=== PATIENT | female | born 1935 | race Caucasian/White ===

== ENCOUNTER → 2016-04-28 | Outpatient (CLI) | payer MEDICARE, BC ==
[~2016-04-28] MED LIST: BENADRYL25 M2 PO; CEPHALEXIN500 M1 PO; COSAMIN ASU 2001 CAP PO; DITROPAN 5MG TAB5 MG PO; EFFEXOR XR75 MG/CAP PO; HYZAAR 12.5 MG-1 TAB PO; LEVOBUNOLOL OU; MELATONIN5 M1 SL; MUCINEX1200 MG PO; MULTIVITAMIN FO1 CAP PO; NEILMED SINUS R1 PKT NS; NORCO 325 MG-51 TAB PO; REFRESH PM1 OI1 OP; TENORMIN 5050 MG/TAB PO; TYLENOL 325MG325 MG PO; ZANTAC 150MG T150 MG PO; [UNRECOGNIZED DRUG - OTHER] PO
== END ==
LOC: MC.RAD 09:25
DX: Z12.31 Encounter for screening mammogram for malignant neoplasm of breast (principal)

== ENCOUNTER → 2016-08-03 | Outpatient (CLI) | payer MEDICARE, BC | LOC: COL.RAD 13:44 | DX: M16.11 Unilateral primary osteoarthritis, right hip (principal) | CPT/HCPCS: J3301; Q9967 ==

== ENCOUNTER → 2016-09-14 | Outpatient (CLI) | payer MEDICARE, BC | LOC: COL.RAD 09:20 | DX: M16.11 Unilateral primary osteoarthritis, right hip (principal) | CPT/HCPCS: J3301; Q9967 ==

== ENCOUNTER → 2016-11-09 | Outpatient (CLI) | payer MEDICARE, BC ==
[2016-11-09 12:08] LABS: HIV 1/2 Antibodies Non-Reactive; HIV-1p24 Antigen Non-Reactive
== END ==
LOC: COL.LAB 10:29
PROVIDERS: Orthopaedic Surgery
DX: Z01.812 Encounter for preprocedural laboratory examination (principal); M16.11 Unilateral primary osteoarthritis, right hip

== ENCOUNTER → 2017-05-09 | Outpatient (CLI) | payer MEDICARE, BC | LOC: MC.RAD 14:00 | DX: Z12.31 Encounter for screening mammogram for malignant neoplasm of breast (principal); N64.89 Other specified disorders of breast ==

== ENCOUNTER → 2017-05-17 | Outpatient (CLI) | payer MEDICARE, BC | LOC: MC.RAD 10:50 | DX: Z12.31 Encounter for screening mammogram for malignant neoplasm of breast (principal) ==

== ENCOUNTER → 2018-05-22 | Outpatient (CLI) | payer MEDICARE, BC | LOC: MC.RAD 11:13 | DX: Z12.31 Encounter for screening mammogram for malignant neoplasm of breast (principal) ==

== ENCOUNTER → 2019-11-19 | Outpatient (CLI) | payer MEDICARE, BC | LOC: MC.RAD 10:40 | DX: Z12.31 Encounter for screening mammogram for malignant neoplasm of breast (principal) ==

== ENCOUNTER → 2019-12-24 | Outpatient (CLI) | payer MEDICARE, BC | LOC: COL.RAD 15:30 | DX: K80.20 Calculus of gallbladder without cholecystitis without obstruction (principal); K44.9 Diaphragmatic hernia without obstruction or gangrene ==

== ENCOUNTER 2020-01-08 06:49 | Day surgery (SDC) | payer MEDICARE, BC ==
[2020-01-08] VITALS (12 sets, daily range): BP systolic 88–129; BP diastolic 45–79; PULSE 64–96; TEMP 97.6–98.9
[~2020-01-08] VITALS: Ht 162.6 cm; Wt 57.3 kg
[2020-01-08 07:29] LABS: BASO # 0.1 (0.0-0.2); BASO % 1.2 % (0.0-2.0); EOS # 0.4 (0.0-0.7); EOS % 6.4 % (0-4.0); GRAN # 4.4 (1.4-6.5); GRAN % 65.3 % (42.2-75.2); HEMATOCRIT 37.5 % (37.0-47.0); LYMPH # 1.1 (1.2-3.4); LYMPH % 15.9 % (20.0-51.0); MEAN CELL VOLUME 87 fl (80.0-100.0); MEAN CORPUSCULAR HEMOGLOBIN 28 pg (27.0-31.0); MEAN CORPUSCULAR HGB CONC 32 g/dl (33.0-37.0); MEAN PLATELET VOLUME 8.9 fl (7.4-10.4); MONO # 0.7 (0.1-0.6); MONO % 10.8 % (1.7-9.3); PLATELET COUNT 325 K/mm3 (130-400); RED BLOOD COUNT 4.32 M/mm3 (4.10-5.30); REDCELL DISTRIBUTION WIDTH-CV 14.7 % (11.5-14.5)
[2020-01-08 07:37] LABS: CALCIUM 9.6 mg/dL (8.4-10.2); CREATININE, serum 0.68 (0.52-1.25); POTASSIUM 4.1 mmol/L (3.4-5.0)
[2020-01-08] MEDS ORDERED: OCUVITE1 TA1 PO (07:55)
[2020-01-08] MEDS ORDERED: MYRBETR50MG PO (07:57)
[2020-01-08] MEDS ORDERED: MINOCYCLIN100 MG/CAP PO (07:57)
[2020-01-08] MEDS ORDERED: ASPIRIN 81M81 MG/TA2 PO (07:58)
[2020-01-08] MEDS ORDERED: TYLENOL 325MG325 MG PO (07:59)
[2020-01-08] MEDS ORDERED: PEPCID 20MG TAB20 MG PO (08:00)
[2020-01-08] MEDS ORDERED: [UNRECOGNIZED DRUG - SUPPLY] TOP (08:03)
[2020-01-08] MEDS ORDERED: EYE DROP TEARS15 ML OP (08:08)
--- NOTE | 2020-01-08 10:04 | NUR ---
Initial visit; Patient and her daughter thanked Conche Operator for offering encouragement and prayer for Tanvi prior to her surgical procedure.
[2020-01-08] MEDS ORDERED: MOTRIN 600600 MG/TAB PO (12:00)
[2020-01-08] MEDS ORDERED: NORCO 325 MG-51 TAB PO (12:00)
--- NOTE | 2020-01-08 13:00 | NUR ---
Patient is back from surgery. She is drowsy but oriented. She is very hard of hearing. Denies nausea and pain. Incisions to abdomen are well approximated. Oriented patient to room. Her daughter is at bedside. Patients oxygen levels are dropping when she falls asleep. Placed her to 2 liters of oxygen via NC. No other changes at this time. Call light within reach.
--- NOTE | 2020-01-08 18:00 | NUR ---
Patient has been doing well. Denies pain and nausea. She is tolerating food without issues. She has been up to the bathroom once to void. She is doing her incentive spirometer without issues. No other changes at this time. Call light within reach. Her daughter left for the night.
--- NOTE | 2020-01-08 19:01 | NUR ---
Received report from TIFFANY Dent. Pt is lying in bed and has her call light within reach and her bed is in lowest position.
--- NOTE | 2020-01-09 | NUR ---
Pt is currently sleeping in bed. Pt has her call light within reach. Pt did complain of pain in her knee and at that time pt was given pain medication.
[2020-01-09 04:00] VITALS: BP 89/43; PULSE 73; TEMP 98.4
--- NOTE | 2020-01-09 05:55 | NUR ---
Pt is currently resting in bed. Pt has ambulated to the restroom a couple times during the night. Pt has her call light within reach and her bed is in lowest position.
[2020-01-09 07:00] VITALS: BP 101/52; PULSE 72; TEMP 98
--- NOTE | 2020-01-09 07:00 | NUR ---
Shift assessment complete. A&O x4, denies pain and nausea at this time.Reviewed instructions for IS use. INT site:no reddness or swelling. Abd lap inc sites x3: GIANNA, CDI. SCD's bilaterally. Pt encouraged to ambulate. Tolerating low fat diet well. Currently visiting w/ her daughter in anticipation of discharge after Dr. Turpin's rounds.
--- NOTE | 2020-01-09 09:00 | NUR ---
Patient alert and oriented, answers questions appropriately. See assessment. Abdomen soft, non tender, non distended. Bowel sounds active x4 quads. +Flatus. Lap sites to abdomen with edges well approximated, no redness or drainage noted. Post op exercises reviewed with patient. No c/o at this time.
[2020-01-09 10:25] VITALS: BP 116/57; PULSE 68; TEMP 98.2
--- NOTE | 2020-01-09 11:14 | NUR ---
First visit from the spring maker. No needs right now.
--- NOTE | 2020-01-09 11:37 | NUR ---
Topology Professor met with patient to discuss discharge planning. Patient's daughter, Elizabeth (ph#[phone]) is at bedside and states she is patient's DPOA-HC. Patient lives alone on a farm in [place] but reports her son, Randy and her grandson are out on the farm all day with her. Patient states her son stays with her until 10:00pm and then makes sure she is in bed for the evening. Patient states she is alone overnight but is able to get to the bathroom using a wheelchair. Patient normally ambulates with a front wheeled walker, however she states it is quicker for her to use the wheelchair if she needs to go to the bathroom at night. Patient was observed ambulating the halls with her front wheeled walker. Patient does not use any DME and states she is independent with ADLS at home. Patient plans to return home at discharge with Elizabeth providing transportation. Patient is hoping to get home today. No additional needs at this time.
--- NOTE | 2020-01-09 11:42 | NUR ---
Dr Turpin here to see patient.
--- NOTE | 2020-01-09 12:45 | NUR ---
Discharge instructions reviewed with patient and daughter, verbalized understanding. Discharged via wheelchair to auto/home with family at 1245.
== END 2020-01-09 12:45 | disposition home or self-care (01) ==
LOC: SDCO 06:49 → SURG 12:13 → SDCO 01-09 12:45
PROVIDERS: Surgery
DX: K80.10 Calculus of gallbladder with chronic cholecystitis without obstruction (principal); I10 Essential (primary) hypertension; G47.00 Insomnia, unspecified; G62.9 Polyneuropathy, unspecified; K21.9 Gastro-esophageal reflux disease without esophagitis; M19.90 Unspecified osteoarthritis, unspecified site; F32.9 Major depressive disorder, single episode, unspecified; G89.29 Other chronic pain; Z79.82 Long term (current) use of aspirin; Z79.899 Other long term (current) drug therapy; Z86.718 Personal history of other venous thrombosis and embolism; Z94.7 Corneal transplant status; Z96.641 Presence of right artificial hip joint; Z88.0 Allergy status to penicillin; Z88.2 Allergy status to sulfonamides; Z87.11 Personal history of peptic ulcer disease
CPT/HCPCS: OP; A9284; J0690; J1100; J1885; J2370; J2405; J2704; J3010; J7120; Q9967

== ENCOUNTER 2020-03-20 11:33 | Outpatient (CLI) | payer MEDICARE, BC ==
[~2020-03-20] VITALS: Ht 162.6 cm; Wt 56.8 kg
[2020-03-20] VITALS (8 sets, daily range): BP systolic 127–151; BP diastolic 69–80; PULSE 61–71; TEMP 98.2
[~2020-03-20 11:33] MED LIST changes: +ASPIRIN 81M81 MG/TA2 PO; +EYE DROP TEARS15 ML OP; +MINOCYCLIN100 MG/CAP PO; +MOTRIN 600600 MG/TAB PO; +MYRBETR50MG PO; +OCUVITE1 TA1 PO; +PEPCID 20MG TAB20 MG PO; +[UNRECOGNIZED DRUG - SUPPLY] TOP
== END 2020-03-20 14:15 | disposition home or self-care (01) ==
LOC: EUO 11:33
DX: U07.1 COVID-19 (principal)
CPT/HCPCS: J7050

== ENCOUNTER 2020-04-11 16:27 | Observation (INO) | payer MEDICARE, BC ==
[~2020-04-11] VITALS: Ht 162.6 cm; Wt 57.4 kg
[2020-04-11 17:05] LABS: BASO # 0.1 (0.0-0.2); BASO % 0.7 % (0.0-2.0); EOS # 0.7 (0.0-0.7); EOS % 7.2 % (0-4.0); GRAN # 6.6 (1.4-6.5); GRAN % 67.2 % (42.2-75.2); LYMPH # 1.4 (1.2-3.4); MEAN CELL VOLUME 87 fl (80.0-100.0); MEAN CORPUSCULAR HGB CONC 32 g/dl (33.0-37.0); MEAN PLATELET VOLUME 8.9 fl (7.4-10.4); MONO % 10.3 % (1.7-9.3); PLATELET COUNT 410 K/mm3 (130-400); RED BLOOD COUNT 2.93 M/mm3 (4.10-5.30); REDCELL DISTRIBUTION WIDTH-CV 14.3 % (11.5-14.5)
[2020-04-11 17:07] LABS: HEMATOCRIT 25.4 % (37.0-47.0); HEMOGLOBIN 8.1 g/dl (12.5-16.0); MEAN CORPUSCULAR HEMOGLOBIN 28 pg (27.0-31.0)
[2020-04-11 17:12] LABS: ALANINE AMINOTRANSFERASE 18 U/L (4-34); ALBUMIN 3.4 gm/dL (3.5-5.0); ALKALINE PHOSPHATASE 106 U/L (50-136); ANION GAP 7 mmol/L (7-16); AST,SGOT 30 U/L (15-37); BILIRUBIN,TOTAL 0.3 mg/dL (0.0-1.0); BLOOD UREA NITROGEN 26 mg/dL (7-17); CALCIUM 9.2 mg/dL (8.4-10.2); CARBON DIOXIDE 30 mmol/L (22-30); CHLORIDE 95 mmol/L (98-107); CREATININE, serum 0.65 (0.52-1.25); GLUCOSE 103 mg/dL (74-106); POTASSIUM 4.1 mmol/L (3.4-5.0); SODIUM 132 mmol/L (137-145); TOTAL PROTEIN 6.5 gm/dL (6.4-8.2)
[2020-04-11 17:20] LABS: COLLECTION METHOD CLEAN CATCH
[2020-04-11 17:24] LABS: TROPONIN-I < 0.012 ng/mL (0.000-0.035)
[2020-04-11 17:28] LABS: AMORPHOUS CRYSTAL Present /uL; MUCOUS Present /lpf; PH 6 (5-8); SQUAMOUS EPITHELIAL 0-2 /hpf; URINE APPEARANCE Hazy; URINE BACTERIA Rare /hpf; URINE BILIRUBIN Negative (NEGATIVE); URINE BLOOD Negative (NEGATIVE); URINE COLOR Yellow; URINE GLUCOSE Negative (NEGATIVE); URINE KETONE Negative (NEGATIVE); URINE LEUKOCYTE ESTERASE Trace (NEGATIVE); URINE NITRATE Negative (NEGATIVE); URINE PROTEIN(semi-quant) Negative (NEGATIVE); URINE UROBILINOGEN Negative (NEGATIVE)
[2020-04-11 20:57] VITALS: BP 139/70; PULSE 82; TEMP 99
[2020-04-11 21:30] VITALS: BP 132/66; PULSE 80; TEMP 98.5
--- NOTE | 2020-04-11 21:31 | NUR ---
Transfusion started at this time.
--- NOTE | 2020-04-11 21:39 | NUR ---
Patient arrived to medical floor at 2044. Assessment complete. Lungs clear. Heart sounds normal. Bowels active x4. Pulses present throughout. No edema noted. INT right wrist flushed without complications. Denies pain. Weak gait. Traci GOODSON in room to see patient. Patient alert and orientated. Orientated to medical floor and given call light. Bed alarm in place. Denies other needs. Remaining at bedside per tranfusion protocol.
[2020-04-11 21:45] VITALS: BP 142/74; PULSE 78; TEMP 98.4
[2020-04-11 22:18] VITALS: BP 140/76; PULSE 79; TEMP 98.7
[2020-04-11 23:15] VITALS: BP 150/79; PULSE 78; TEMP 98.3
[2020-04-12] VITALS (10 sets, daily range): BP systolic 111–137; BP diastolic 63–92; PULSE 74–91; TEMP 98–98.8
--- NOTE | 2020-04-12 00:28 | NUR ---
Transfusion complete. up to restroom and returned to bed. Denies needs. Call light in reach.
[2020-04-12 03:19] LABS: HEMATOCRIT 26.8 % (37.0-47.0); HEMOGLOBIN 8.6 g/dl (12.5-16.0)
--- NOTE | 2020-04-12 06:40 | NUR ---
Patient had uneventful night. Resting in bed this AM. Call light in reach.
--- NOTE | 2020-04-12 07:11 | NUR ---
Report given to TIFFANY Soto
[2020-04-12 08:34] LABS: BASO # 0.1 (0.0-0.2); BASO % 0.8 % (0.0-2.0); EOS # 0.6 (0.0-0.7); EOS % 8.3 % (0-4.0); GRAN # 4.8 (1.4-6.5); GRAN % 66.2 % (42.2-75.2); LYMPH # 0.9 (1.2-3.4); LYMPH % 12.5 % (20.0-51.0); MEAN CELL VOLUME 87 fl (80.0-100.0); MEAN CORPUSCULAR HGB CONC 32 g/dl (33.0-37.0); MEAN PLATELET VOLUME 8.8 fl (7.4-10.4); MONO # 0.8 (0.1-0.6); MONO % 11.5 % (1.7-9.3); PLATELET COUNT 314 K/mm3 (130-400); RED BLOOD COUNT 3.22 M/mm3 (4.10-5.30); REDCELL DISTRIBUTION WIDTH-CV 14.3 % (11.5-14.5)
[2020-04-12 08:35] LABS: HEMATOCRIT 28.1 % (37.0-47.0); HEMOGLOBIN 8.9 g/dl (12.5-16.0); MEAN CORPUSCULAR HEMOGLOBIN 28 pg (27.0-31.0)
[2020-04-12 08:48] LABS: ALBUMIN 2.8 gm/dL (3.5-5.0); BILIRUBIN,TOTAL 0.5 mg/dL (0.0-1.0); CALCIUM 8.2 mg/dL (8.4-10.2); CREATININE, serum 0.48 (0.52-1.25); POTASSIUM 3.9 mmol/L (3.4-5.0); TOTAL PROTEIN 5.6 gm/dL (6.4-8.2)
[2020-04-12 10:29] LABS: IRON,SERUM 17 ug/dL (35-150)
[2020-04-12 10:38] LABS: TOTAL IRON BINDING CAPACITY 300 ug/dL (265-497)
--- NOTE | 2020-04-12 11:40 | NUR ---
Pt down for EGD at this time. Assessment completed prior, pt A&O, on room air. Pt denies any pain, dizziness, N/V/D, chest pain, numbness or tingling. Pt has INT RWR, flushes well. UL LS cta, LLL crackles, HRRR, BS active, no edema noted, pulses strong bilaterally. No further needs at this time.
--- NOTE | 2020-04-12 12:30 | NUR ---
Pt back from EGD, no issues noted, post op VS monitoring in progress. Pt requesting water and food. Lunch ordered and delivered, water provided. Medications administered per may. All questions answered.
--- NOTE | 2020-04-12 13:26 | NUR ---
Plans to return home with DTR as care Support Ayana Casandra. SW met with patient and dtr in room. Patient reports that she is okay with talking in front of DTR. Patient reports that she resides in [place] and has a son and dtr involved with her care. Patient reports DPOA is her Son Rashad . Patient reports that she has PCP Dr. Papa Dove and uses [facility] for medications. 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 Patient reports that she does not need any HHS or Skilled services and will think about it for later. Patient indicated that she will be okay when returning home. Will continue to follow care.
[2020-04-12 17:58] LABS: HEMATOCRIT 29.6 % (37.0-47.0); HEMOGLOBIN 9.3 g/dl (12.5-16.0)
--- NOTE | 2020-04-12 18:19 | NUR ---
Pt doing well post EGD, has received lunch and dinner. Pt showered. No further concerns noted.
--- NOTE | 2020-04-12 19:11 | NUR ---
Reports left knee pain. Would like cream for knee. Spoke with Traci GOODSON. Will add orders.
--- NOTE | 2020-04-12 21:25 | NUR ---
Up to bedside commode. Assessment complete. Lungs clear. Heart sounds normal. Bowels active x4. Pulses present throughout. No edema noted. INT right wrist without complications. Reports pain in knees. Capsaicin cream applied at this time. Denies other needs. Call light in reach.
--- NOTE | 2020-04-13 00:07 | NUR ---
Up to restroom and returned to bed. Denies needs. Call light in reach.
--- NOTE | 2020-04-13 01:38 | NUR ---
Up to restroom and returned to bed. Denies needs. Call light in reach.
[2020-04-13 03:21] VITALS: BP 125/37; PULSE 79; TEMP 98.2
--- NOTE | 2020-04-13 04:19 | NUR ---
Resting in bed. Denies needs. Call light in reach.
[2020-04-13 06:08] LABS: BASO # 0.1 (0.0-0.2); BASO % 0.9 % (0.0-2.0); EOS # 0.9 (0.0-0.7); EOS % 12.2 % (0-4.0); GRAN # 4.2 (1.4-6.5); GRAN % 56.7 % (42.2-75.2); HEMATOCRIT 29.6 % (37.0-47.0); HEMOGLOBIN 9.4 g/dl (12.5-16.0); LYMPH # 1.3 (1.2-3.4); MEAN CELL VOLUME 86 fl (80.0-100.0); MEAN CORPUSCULAR HEMOGLOBIN 27 pg (27.0-31.0); MEAN CORPUSCULAR HGB CONC 32 g/dl (33.0-37.0); MEAN PLATELET VOLUME 8.8 fl (7.4-10.4); MONO # 0.9 (0.1-0.6); MONO % 12.4 % (1.7-9.3); PLATELET COUNT 370 K/mm3 (130-400); RED BLOOD COUNT 3.46 M/mm3 (4.10-5.30); REDCELL DISTRIBUTION WIDTH-CV 14.2 % (11.5-14.5)
[2020-04-13 06:18] LABS: CALCIUM 8.6 mg/dL (8.4-10.2); CREATININE, serum 0.62 (0.52-1.25); POTASSIUM 3.9 mmol/L (3.4-5.0)
--- NOTE | 2020-04-13 07:14 | NUR ---
Report given to TIFFANY Soto
[2020-04-13 08:46] VITALS: BP 108/80; PULSE 83; TEMP 97.5
[2020-04-13] MEDS ORDERED: PROTONIX 40MG T40 MG PO (09:25)
[2020-04-13] MEDS ORDERED: FERRO-TIME325 MG PO (09:28)
--- NOTE | 2020-04-13 09:30 | NUR ---
Pt assessment completed and charted, medications administered per may. Pt A&O, 1 assist to bedside commode. Pt INT IV flushes w/o issue. Pt on room air, breathing is even and unlabored, LS cta. HRRR. Pt denies dizziness, N/V/D, chest pain, abdominal pain. Hgb remains stable. Pt has soft BPs this morning, asymptomatic. No issues noted, no concerns expressed.
[2020-04-13 09:34] VITALS: BP 115/72
--- NOTE | 2020-04-13 11:40 | NUR ---
Patient will discharge home today 04/13 with family assist per PT evaluations. There are no further needs at this time.
[2020-04-13 12:09] VITALS: BP 96/60; PULSE 82; TEMP 97.5
--- NOTE | 2020-04-13 13:59 | NUR ---
Pt discharge instructions discussed and reviewed w/ pt and daughter who verbalized understanding, all questions answered. INT IV dc'd w/ cath tip intact and no issues. Pt assisted to bedside commode prior to departure. Pt assisted in getting ready and escorted out via WC with this nurse. No further needs expressed.
== END 2020-04-13 14:06 | disposition home or self-care (01) ==
LOC: COL.ER 16:27 → MEDICAL 18:19
PROVIDERS: Internal Medicine Gastroenterology; Nurse Practitioner Primary Care; Student in an Organized Health Care Education/Training Program; ADMIT Student in an Organized Health Care Education/Training Program
DX: K25.7 Chronic gastric ulcer without hemorrhage or perforation (principal); K21.9 Gastro-esophageal reflux disease without esophagitis; D50.0 Iron deficiency anemia secondary to blood loss (chronic); K44.9 Diaphragmatic hernia without obstruction or gangrene; E87.1 Hypo-osmolality and hyponatremia; I10 Essential (primary) hypertension; M19.90 Unspecified osteoarthritis, unspecified site; G89.29 Other chronic pain; G62.9 Polyneuropathy, unspecified; R32 Unspecified urinary incontinence; F32.9 Major depressive disorder, single episode, unspecified; Z86.16 Personal history of COVID-19; Z86.718 Personal history of other venous thrombosis and embolism; Z96.641 Presence of right artificial hip joint; Z79.899 Other long term (current) drug therapy; Z79.82 Long term (current) use of aspirin; Z88.2 Allergy status to sulfonamides; Z88.1 Allergy status to other antibiotic agents; Z88.0 Allergy status to penicillin
CPT/HCPCS: 99223-AI; 99233-AI; 99239; C9113; G0378; J2704; J7120; P9016

== ENCOUNTER → 2020-11-27 | Outpatient (CLI) | payer MEDICARE, BC ==
[~2020-11-27] MED LIST changes: +FERRO-TIME325 MG PO; +PROTONIX 40MG T40 MG PO
== END ==
LOC: MC.RAD 10:43
DX: Z12.31 Encounter for screening mammogram for malignant neoplasm of breast (principal)

== ENCOUNTER 2021-07-20 12:10 | Inpatient (IN) | payer MEDICARE, BC ==
[~2021-07-20] VITALS: Ht 162.6 cm; Wt 67.8 kg
[2021-07-20 12:53] LABS: BASO # 0.1 K/mm3 (0.0-0.2); BASO % 0.8 % (0.0-2.0); EOS # 0.4 K/mm3 (0.0-0.7); EOS % 5.5 % (0.0-4.0); GRAN # 4.3 K/mm3 (1.4-6.5); GRAN % 66.3 % (42.2-75.2); LYMPH # 1.1 K/mm3 (1.2-3.4); LYMPH % 16.4 % (20.0-51.0); MEAN CELL VOLUME 86 fl (80.0-100.0); MEAN CORPUSCULAR HGB CONC 30 g/dl (33.0-37.0); MEAN PLATELET VOLUME 9.6 fl (7.4-10.4); MONO # 0.7 K/mm3 (0.1-0.6); MONO % 10.7 % (1.7-9.3); PLATELET COUNT 207 K/mm3 (130-400); RED BLOOD COUNT 3.19 M/mm3 (4.10-5.30); REDCELL DISTRIBUTION WIDTH-CV 13.1 % (11.5-14.5)
[2021-07-20 12:55] LABS: HEMATOCRIT 27.3 % (37.0-47.0); HEMOGLOBIN 8.3 g/dl (12.5-16.0); MEAN CORPUSCULAR HEMOGLOBIN 26 pg (27-31)
[2021-07-20 13:17] LABS: ALANINE AMINOTRANSFERASE 11 U/L (0-55); ALBUMIN 3.5 gm/dL (3.4-4.8); ALKALINE PHOSPHATASE 58 U/L (40-150); ANION GAP 11 mmol/L (7-16); AST,SGOT 21 U/L (5-34); BILIRUBIN,TOTAL 0.3 mg/dL (0.2-1.2); BLOOD UREA NITROGEN 16 mg/dL (10-20); CALCIUM 8.8 mg/dL (8.4-10.2); CARBON DIOXIDE 25 mmol/L (23-31); CHLORIDE 103 mmol/L (98-107); CREATININE, serum 0.69 mg/dL (0.57-1.11); GLUCOSE 112 mg/dL (70-99); LIPASE 87 U/L (8-78); POTASSIUM 4.1 mmol/L (3.5-4.5); SODIUM 139 mmol/L (136-145); TOTAL PROTEIN 6.4 gm/dL (6.2-8.1)
[2021-07-20 13:25] LABS: TROPONIN-I < 0.010 ng/mL (0.00-0.033)
[2021-07-20 15:41] VITALS: BP 126/73; PULSE 62; TEMP 97.8
[2021-07-20] MEDS ORDERED: MINOCIN 50M50 MG/CAP PO (15:43)
[2021-07-20] MEDS ORDERED: ONE-A-DAY WOMEN1 TAB PO (15:46)
[2021-07-20] MEDS ORDERED: VITAMIN D31000 I1 PO (15:47)
[2021-07-20] MEDS ORDERED: MIRTAZAPINE7.5 MG PO (15:48)
[2021-07-20] MEDS ORDERED: MURO-128 5% OP3.5 GM OP ×2 (15:49→17:26)
[2021-07-20] MEDS ORDERED: CEFTRIAXONE IJ (15:50)
[2021-07-20] MEDS ORDERED: [UNRECOGNIZED DRUG - OTHER] IJ (15:50)
[2021-07-20] MEDS ORDERED: ZOFRAN 4MG T4 MG/TAB PO (15:50)
--- NOTE | 2021-07-20 15:52 | NUR ---
PT ADMITTED TO UNIT. ADMISSION INTAKE AND ASSESSMENT COMPLETED. MED REC UPDATED. PT ORIENTED TO ROOM, DAUGHTER AT BEDSIDE. PT DENIES ANY PAIN OR NEEDS AT THIS TIME. WILL CONTINUE TO MONITOR.
[2021-07-20] MEDS ORDERED: REFRESH 1 ML1 ML OP (17:25)
[2021-07-20 19:54] VITALS: BP 125/63; PULSE 69; TEMP 98.2
[2021-07-20 21:32] LABS: HEMOGLOBIN 7.6 g/dl (12.5-16.0)
[2021-07-20 22:41] LABS: INR 1.1 (0.8-3.0); PROTHROMBIN TIME 12.5 SECONDS (9.7-12.8)
[2021-07-21] VITALS (16 sets, daily range): BP systolic 97–142; BP diastolic 54–86; PULSE 66–86; TEMP 98–98.5
--- NOTE | 2021-07-21 06:18 | NUR ---
ASSESSMENT COMPLETE FOR THIS SHIFT. PT RESTING IN BED WITH HER FAMILY BY HER SIDE. PT DENIED PAIN, PALPITATIONS, SOB, N,V,D OR DIZZINESS. PT GIVEN FULL DOSE OF REMERON (15mg VS ORDERED DOSE OF 3.75mg). HOSPITALIST NOTIFIED. ERS REPORT DONE. NO NOTED HARM TO PT. PT JUST FELT SHE WAS ABLE TO GET A FEW HOURS OF SLEEP ("IT WORKED." PT STATED). WILL CONTINUE TO MONITOR. PT EXPRESSED NO OTHER NEEDS AT THIS TIME. CALL LIGHT WITHIN REACH.
[2021-07-21 06:25] LABS: BASO % 0.8 % (0.0-2.0); EOS # 0.4 K/mm3 (0.0-0.7); EOS % 7.4 % (0.0-4.0); GRAN # 2.9 K/mm3 (1.4-6.5); LYMPH % 20.2 % (20.0-51.0); MEAN CELL VOLUME 89 fl (80.0-100.0); MEAN CORPUSCULAR HGB CONC 30 g/dl (33.0-37.0); MEAN PLATELET VOLUME 9.6 fl (7.4-10.4); MONO # 0.7 K/mm3 (0.1-0.6); MONO % 13.2 % (1.7-9.3); PLATELET COUNT 178 K/mm3 (130-400); RED BLOOD COUNT 2.79 M/mm3 (4.10-5.30); REDCELL DISTRIBUTION WIDTH-CV 12.9 % (11.5-14.5)
[2021-07-21 06:34] LABS: HEMATOCRIT 24.7 % (37.0-47.0); HEMOGLOBIN 7.4 g/dl (12.5-16.0); MEAN CORPUSCULAR HEMOGLOBIN 27 pg (27-31)
[2021-07-21 06:47] LABS: CALCIUM 8.4 mg/dL (8.4-10.2); CREATININE, serum 0.64 mg/dL (0.57-1.11); MAGNESIUM 1.8 mg/dL (1.6-2.6); PHOSPHOROUS 3.3 mg/dL (2.3-4.7); POTASSIUM 3.8 mmol/L (3.5-4.5)
--- NOTE | 2021-07-21 07:00 | NUR ---
PT OFF UNIT FOR PROCEDURE THIS AM
--- NOTE | 2021-07-21 08:52 | NUR ---
PT RESTING IN BED. MORNING MEDICATIONS GIVEN. SHIFT ASSESSMENT COMPLETED. PT DENIES ANY PAIN. SLIGHTLY DROWSY FOLLOWING PROCEDURE, VSS. WILL CONTINUE TO MONITOR.
--- NOTE | 2021-07-21 13:06 | NUR ---
Cheryl: Nondenominational Situation: Road Monkey stopped by room on rounds Background: PT was on the phone Assessment: Daughter explained PT was nervous about procedure. Road [facility]key offered our services Recommendation: Road [facility] will follow up as needed
--- NOTE | 2021-07-21 15:07 | NUR ---
SW met with the patient and her daughter, Jihan (ph#[phone]), to discuss discharge plan. The patient lives alone on a farm outside [place]. She states that her son and grandson farm out there and are in and out of here house all day and check-in on her. She reports independence with ADLs and has a walker. The patient's PCP is Dr. Terell Dove and she receives her medications from [facility] in [place]. The patient does not have a DPOA-HC in EMR, but she states that she does have one completed and that it designates her other daughter, Nia Wolf (ph#[phone]). Jihan states that Nia should have a copy of the document and Nia will be up to the hospital soon. They can provide it to the nurses station, if they have it. The patient is not and she has six children: Jihan, Nia, Ayana Marinelli, Julissa, Randy, and Elizabeth. PT is recommending home with family assistance. The patient plans on returning home with family assistance upon discharge. The patient and her daughter had no questions or concerns for SW. No additional needs at this time. *Discharge plan: home with family assistance*
[2021-07-21 18:26] LABS: HEMATOCRIT 28.1 % (37.0-47.0); HEMOGLOBIN 8.6 g/dl (12.5-16.0)
[2021-07-22] VITALS (11 sets, daily range): BP systolic 95–136; BP diastolic 51–72; PULSE 78–94; TEMP 97.9–98.5
--- NOTE | 2021-07-22 03:49 | NUR ---
Pt alert and oriented this evening, calm and cooperative. Denied pain initially, but began to complain of abdominal pain and nausea after completing bowel prep. Pt experienced some nausea and a small amount of emesis. Administered prn zofran and the pt reported relief. No emesis episodes since. Pt does have a productive cough with thin, clear secretions. Pt completed the bowel prep but has not had much stool output. Pt has been up to [facility] x2 tonight for a BM. BM was brown and loose. Continuing to monitor stool output. Shift assessment completed. Medications administered per orders and education provided. No significant skin issues noted. VS stable. Pt NPO 0000. Pt reports no questions, will continue to monitor.
--- NOTE | 2021-07-22 05:09 | NUR ---
Pt remains alert and oriented, resting quietly in bed now. Denies pain/nausea. No new emesis episodes. Pt did get up OOB again for another BM. BM was loose but brown and small. Continuing to monitor output. Pt NPO 0000. Tolerated pills with water and clear liquid diet prior to switching to NPO. Pt reports no questions at this time, will continue to monitor.
[2021-07-22 06:36] LABS: BASO # 0.1 K/mm3 (0.0-0.2); EOS # 0.5 K/mm3 (0.0-0.7); EOS % 7.7 % (0.0-4.0); GRAN % 58.9 % (42.2-75.2); LYMPH # 1.2 K/mm3 (1.2-3.4); LYMPH % 17.7 % (20.0-51.0); MEAN CELL VOLUME 88 fl (80.0-100.0); MEAN CORPUSCULAR HGB CONC 30 g/dl (33.0-37.0); MEAN PLATELET VOLUME 9.2 fl (7.4-10.4); MONO % 14.1 % (1.7-9.3); PLATELET COUNT 231 K/mm3 (130-400); RED BLOOD COUNT 3.39 M/mm3 (4.10-5.30); REDCELL DISTRIBUTION WIDTH-CV 13.2 % (11.5-14.5)
[2021-07-22 06:37] LABS: HEMATOCRIT 29.8 % (37.0-47.0); HEMOGLOBIN 8.9 g/dl (12.5-16.0); MEAN CORPUSCULAR HEMOGLOBIN 26 pg (27-31)
[2021-07-22 07:06] LABS: ALBUMIN 3.5 gm/dL (3.4-4.8); CALCIUM 8.7 mg/dL (8.4-10.2); CREATININE, serum 0.71 mg/dL (0.57-1.11); MAGNESIUM 1.8 mg/dL (1.6-2.6); PHOSPHOROUS 3.4 mg/dL (2.3-4.7); POTASSIUM 3.8 mmol/L (3.5-4.5)
--- NOTE | 2021-07-22 08:30 | NUR ---
Patient using the BSC upon entering the room. Stool is liquidy, but still has some brown color to it. Patient alert and oriented, and a stand-by assist. Daughter is at the bedside. Patient and daughter deny any concerns, just waiting for colonoscopy. Call light is w/in reach.
--- NOTE | 2021-07-22 11:17 | NUR ---
The patient's daughter provided the patient's DPOA-HC to the RN. The DPOA-HC is in her chart. The patient designated her daughter, Mirtha. PT is recommending home with family assist. OT is recommending SNF vs home with supervision and home health. SW met with the patient and her daughter, Mirtha, to discuss their recommendation. Mirtha reports that her brother is in the patient's home and helps the patient get ready for the day, if needed. The patient states that once she is up, she makes meals and stays on the go during the day. Mirtha and the patient do not feel like SNF is needed and they are also not interested in home health at this time. SW to follow as needed. *Discharge plan: home with family assistance*
--- NOTE | 2021-07-22 13:06 | NUR ---
Patient taken down to endoscopy. Kwadwo from tele called and notified. This RN recieved report from Gabriel Ambriz; Patient tolerated procedure well. Patient should be back in the room shortly.
[2021-07-22] MEDS ORDERED: VENOFER IV ×3 (15:49→16:13)
--- NOTE | 2021-07-22 16:43 | NUR ---
The hospitalist is ready to discharge the patient today. The hospitalist is recommending IV Iron for three more doses, every three days. The patient and her daughter would like to receive the IV Iron at the [facility]. XI contacted Mary at [facility]. Mary reports that they are able to order in the IV Iron and administer to it to the patient. The patient was secured an appointment there for her next dose on Tuesday, 07/25, at 1000. XI updated the PA. XI met with the patient and her daughter, Mirtha, and updated them on the above. The patient and her daughter are in agreement to the appointment time. XI informed the director of community life of the appointment. The patient is to discharge back home today, 07/22, with family support and IV Iron infusions at [facility]. No additional needs at this time.
--- NOTE | 2021-07-22 17:19 | NUR ---
Patient discharged home. IV and telemetry removed by this RN. All education/instructions discussed w/ patient and daughter at the bedside. Patient verbalized understanding and appropriate discharge paperwork was signed. Patient denies any concerns at the time of discharge.
--- NOTE | 2021-07-22 18:37 | NUR ---
Patient escorted out by PCT.
== END 2021-07-22 18:35 | disposition home or self-care (01) | DRG 377 ==
LOC: COL.ER 12:10 → MEDICAL 14:28
PROVIDERS: Emergency Medicine; Internal Medicine Gastroenterology; Student in an Organized Health Care Education/Training Program; ADMIT Internal Medicine
PROC: 0DJ08ZZ Inspection of Upper Intestinal Tract, Via Natural or Artificial Opening Endoscopic (ICD-10-PCS; principal; 2021-07-21 07:00)
PROC: 0DJD8ZZ Inspection of Lower Intestinal Tract, Via Natural or Artificial Opening Endoscopic (ICD-10-PCS; 2021-07-22)
DX: K92.2 Gastrointestinal hemorrhage, unspecified (principal); J96.01 Acute respiratory failure with hypoxia; D62 Acute posthemorrhagic anemia; D50.9 Iron deficiency anemia, unspecified; K21.9 Gastro-esophageal reflux disease without esophagitis; K44.9 Diaphragmatic hernia without obstruction or gangrene; K57.30 Diverticulosis of large intestine without perforation or abscess without bleeding; K25.9 Gastric ulcer, unspecified as acute or chronic, without hemorrhage or perforation; I08.3 Combined rheumatic disorders of mitral, aortic and tricuspid valves; I44.0 Atrioventricular block, first degree; R00.1 Bradycardia, unspecified; I10 Essential (primary) hypertension; F32.A Depression, unspecified; Z96.641 Presence of right artificial hip joint; Z86.718 Personal history of other venous thrombosis and embolism; Z90.710 Acquired absence of both cervix and uterus; Z88.2 Allergy status to sulfonamides; Z88.6 Allergy status to analgesic agent; Z88.8 Allergy status to other drugs, medicaments and biological substances
CPT/HCPCS: 99223-AI; 99232-AI; 99239; C9113; J1756; J2405; J2704; J7030

== ENCOUNTER 2021-07-25 13:26 | Emergency (ER) | payer MEDICARE, BC ==
[~2021-07-25] VITALS: Ht 162.6 cm; Wt 60.0 kg
[~2021-07-25 13:26] MED LIST changes: +CEFTRIAXONE IJ; +MINOCIN 50M50 MG/CAP PO; +MIRTAZAPINE7.5 MG PO; +MURO-128 5% OP3.5 GM OP; +ONE-A-DAY WOMEN1 TAB PO; +REFRESH 1 ML1 ML OP; +VENOFER IV; +VITAMIN D31000 I1 PO; +ZOFRAN 4MG T4 MG/TAB PO; +[UNRECOGNIZED DRUG - OTHER] IJ
[2021-07-25 14:12] VITALS: TEMP 98.4
[2021-07-25 14:40] LABS: BASO # 0.1 K/mm3 (0.0-0.2); EOS # 0.5 K/mm3 (0.0-0.7); EOS % 6.4 % (0.0-4.0); GRAN # 4.9 K/mm3 (1.4-6.5); GRAN % 67.9 % (42.2-75.2); LYMPH # 1.1 K/mm3 (1.2-3.4); LYMPH % 15.4 % (20.0-51.0); MEAN CELL VOLUME 89 fl (80.0-100.0); MEAN CORPUSCULAR HGB CONC 29 g/dl (33.0-37.0); MEAN PLATELET VOLUME 9.4 fl (7.4-10.4); MONO # 0.6 K/mm3 (0.1-0.6); MONO % 8.6 % (1.7-9.3); PLATELET COUNT 228 K/mm3 (130-400); RED BLOOD COUNT 3.53 M/mm3 (4.10-5.30); REDCELL DISTRIBUTION WIDTH-CV 14.4 % (11.5-14.5)
[2021-07-25 14:43] LABS: HEMATOCRIT 31.5 % (37.0-47.0); HEMOGLOBIN 9.2 g/dl (12.5-16.0); MEAN CORPUSCULAR HEMOGLOBIN 26 pg (27-31)
[2021-07-25 15:02] LABS: ALBUMIN 3.6 gm/dL (3.4-4.8); BILIRUBIN,TOTAL 0.2 mg/dL (0.2-1.2); CALCIUM 8.7 mg/dL (8.4-10.2); CREATININE, serum 0.84 mg/dL (0.57-1.11); POTASSIUM 4.6 mmol/L (3.5-4.5); TOTAL PROTEIN 6.4 gm/dL (6.2-8.1)
[2021-07-25 16:04] VITALS: BP 115/74; PULSE 73
== END 2021-07-25 16:08 | disposition home or self-care (01) ==
LOC: COL.ER 13:26
PROVIDERS: Emergency Medicine
DX: R53.1 Weakness (principal)

== ENCOUNTER 2021-08-06 18:55 | Observation (INO) | payer MEDICARE, BC ==
[2021-08-06 20:14] VITALS: BP 139/74; PULSE 80; TEMP 97.2
[2021-08-06 21:21] VITALS: BP 111/59; PULSE 63
--- NOTE | 2021-08-06 23:27 | NUR ---
Attempted to start an IV. Pt. did not tolerated well. After 1 attempt Pt. became diaphoretic and reported feeling like passing out. Vital signs take. BP was 72/32. Dr. Rodriguez notified. New orders received. covering and lining supervisor notified for IV start. 20 gauge started to rt. forearm. Fluid bolus started. Monitoring vitals q15 mins at this time.
[2021-08-06 23:30] VITALS: BP 72/32
[2021-08-06 23:53] VITALS: BP 111/87
[2021-08-07 03:23] VITALS: BP 139/88; PULSE 87; TEMP 95.2; TEMP 97.7
[2021-08-07 07:45] VITALS: BP 137/69; PULSE 86; TEMP 98
[2021-08-07 11:16] VITALS: BP 133/78; PULSE 89; TEMP 98.2
--- NOTE | 2021-08-07 11:37 | NUR ---
Initial visit; Patient and her daughter thanked Bereavement Counselor for looking in on her, visiting and offering prayer and God's blessings.
--- NOTE | 2021-08-07 11:39 | NUR ---
SW completed intake with patient. Patient states that she lives alone in [facility]. Next of kin is her daughter Nia Wolf [phone]. Patient states that she does use a walker, is independent with ADL's, and does not utilize any HH services at this time. PCP is Dr. Dove, pharmacy is [facility]. DPOC/HC is daughter Nia. Patient states that her plan is to return to her home upon DC. SW will continue to follow. DC plan: home
[2021-08-07] MEDS ORDERED: NATURAL IRON65 MG PO (13:59)
[2021-08-07] MEDS ORDERED: COZAAR100 MG PO (14:00)
[2021-08-07 15:55] VITALS: BP 133/85; PULSE 56; TEMP 98.8
--- NOTE | 2021-08-07 16:20 | NUR ---
Patient had an uneventful day. Continues to have dark colored liquid stools. Plan of care discussed for restarting Go-Lightly at 1800 for colonoscopy on Tuesday. Denies questions/concerns. Call light in reach. Will monitor.
--- NOTE | 2021-08-07 17:48 | NUR ---
Go Lightly started at this time.
[2021-08-07 19:53] VITALS: BP 138/81; PULSE 74; TEMP 97.9
[2021-08-08] VITALS (11 sets, daily range): BP systolic 127–158; BP diastolic 72–89; PULSE 86–115; TEMP 97.3–98.4
--- NOTE | 2021-08-08 04:22 | NUR ---
Pt completed 2nd bowel prep. Stool is liquid and yellow in color, will continue to monitor. Pt has had minimal complaints of pain/discomfort throughout this shift. Pt has been pleasant and compliant. All other needs met at this time, call light within reach.
--- NOTE | 2021-08-08 08:38 | NUR ---
PT TAKEN TO SURGERY @ THIS TIME. FAMILY IS ACCOMPANYING.
--- NOTE | 2021-08-08 10:06 | NUR ---
PT HAS ARRIVED BACK TO ROOM FROM PROCEDURE, FAMILY @ BEDSIDE. PT IS SLEEPING, RESPIRATIONS UNLABORED ON ROOM AIR. IVF INFUSING. BED ALARM IS ON. CALL LIGHT WITHIN REACH.
--- NOTE | 2021-08-08 13:15 | NUR ---
PT IS A&O X4, HAS EATEN 100% OF LUNCH, STATES THAT SHE WAS HUNGRY. WHILE GETTING UP TO USE THE BR, PT STATES THAT SHE WAS FEELING NAUSEOUS, IS LAYING DOWN @ THIS TIME. PT STATES THAT SHE FEELS THOUGH SHE MAY HAVE EATEN TOO MUCH. FAMILY IS @ BEDSIDE.
--- NOTE | 2021-08-08 14:17 | NUR ---
PT DISCHARGED TO HOME WITH HER 2 DAUGHTERS @ THIS TIME. PT LIVES IN [place], [place] IS [address]. PT STATES THAT NAUSEA HAS IMPROVED BUT SHE WOULD LIKE TO [place] TO PREVENT ANY EMESIS ON THE WAY HOME. PERIPHERAL IV DCED. PT'S FAMILY ASSISTED PT TO DRIVE IN [place]. DISCHARGE EDUCATION ET INSTRUCTIONS GIVEN TO PT ET FAMILY, DEMONSTRATE UNDERTSANDING ET DENY QUESTIONS. PT TRANSPORTED TO PRIVATE VEHICLE VIA WHEELCHAIR PUSHED BY NILDA BULLOCK.
== END 2021-08-08 14:17 | disposition home or self-care (01) ==
LOC: SDCO 18:55 → SURG 19:00 → SDCO 08-07 12:32 → SURG 08-07 12:33 → SDCO 08-07 12:45 → SURG 08-08 14:17
PROVIDERS: ADMIT Internal Medicine Gastroenterology
DX: D12.5 Benign neoplasm of sigmoid colon (principal); K57.30 Diverticulosis of large intestine without perforation or abscess without bleeding; D50.0 Iron deficiency anemia secondary to blood loss (chronic); I10 Essential (primary) hypertension; J01.90 Acute sinusitis, unspecified; F32.A Depression, unspecified; Z79.899 Other long term (current) drug therapy; Z79.82 Long term (current) use of aspirin; Z87.11 Personal history of peptic ulcer disease
CPT/HCPCS: OP; 99222; G0378; J2405; J2704; J7030; J7040

== ENCOUNTER 2021-10-29 13:28 | Day surgery (SDC) | payer MEDICARE, BC ==
[~2021-10-29] VITALS: Ht 162.6 cm; Wt 58.9 kg
[~2021-10-29 13:28] MED LIST changes: +COZAAR100 MG PO; +NATURAL IRON65 MG PO
[2021-10-29 14:22] VITALS: BP 152/89; PULSE 79; TEMP 97.1
--- NOTE | 2021-10-29 14:32 | NUR ---
Initial visit; Patient and her daughter thanked Ice Skating Coach for offering encouragement, comfort and prayer for Tanvi prior to her 'Procedure.' Tanvi's daughter encouraged Tanvi to hear Ice Skating Coach's prayer, to remember there are miracles every day and that Tanvi may experience one. Tanvi was tearful but not as fearful when Ice Skating Coach offered God's blessings and left her.
[2021-10-29 16:10] VITALS: BP 164/86; PULSE 77; TEMP 97.7
--- NOTE | 2021-10-29 16:10 | NUR ---
PT RETURNED TO [facility] [facility] VIA CART, STAYED ON CART FOR COMFORT, DAUGHTER IN ROOM, AND DR MALDONADO INTO TALK WITH PT AND DAUGHTER. PT RESTS ON RIGHT SIDE, STATES IS STILL SOME NAUSEATED, ZOFRAN IV GIVEN EARLIER AT 1600
[2021-10-29 16:30] VITALS: BP 171/90; PULSE 77
--- NOTE | 2021-10-29 16:30 | NUR ---
PT C/O RIGHT UPPER QUADRANT PAIN, PT HAS HAD THIS TYPE OF PAIN PRIOR TO ADMISSION AND TAKES TRAMADOL 50MG PO 2 TABS TID, DAUGHTER STATES HAS RAN OUT OF MED BUT IS GETTING NEW RX PICKED UP TODAY AT [facility], DR CARDENAS AND LILLIE ELENA RECIEVED.
[2021-10-29 16:45] VITALS: BP 161/79; PULSE 77
--- NOTE | 2021-10-29 16:45 | NUR ---
TRAMADOL 100MG PO GIVEN, PT TAKES SPRITE WELL, NO EMESIS OR INCREASE NAUSEA. USING WARM BLANKET TO RIGHT ABD TO HELP WITH DISCOMFORT.
[2021-10-29 17:00] VITALS: BP 165/94; PULSE 74
--- NOTE | 2021-10-29 17:00 | NUR ---
PT SITS ON SIDE OF CART WITH ASSIST, THEN ASSISTED TO W/C, STATES DOES "NOT FEEL GOOD" BUT NO NAUSEA OR INCREASE PAIN. IV D'CD INTACT. REVIEWED DISCHARGE INST. WITH DAUGHTER AND PT, QUESTIONS ANSWERED, WILL CON'T ON CLD AND ADVANCE TOLERATED.
--- NOTE | 2021-10-29 17:20 | NUR ---
PT DISCHARGED VIA W/C TO CAR WITH DAUGHTER, DAUGHTER TALKED ABOUT HOW A FAMILY THEY WERE TALKING ABOUT HOSPICE, DAUGHTER WILL STAY WIT PT SOHA
== END 2021-10-29 17:20 | disposition home or self-care (01) ==
LOC: SDCO 13:28
DX: K83.1 Obstruction of bile duct (principal); K83.8 Other specified diseases of biliary tract; G62.9 Polyneuropathy, unspecified; K86.89 Other specified diseases of pancreas; Z86.16 Personal history of COVID-19
CPT/HCPCS: C1769; C1876; C2625; J2704; J7030; Q9966